=== PATIENT | male | born 1995 | race Caucasian/White ===

== ENCOUNTER → 2016-09-04 | Outpatient (CLI) | payer MEDICAID | LOC: FIMAGING 11:58 | PROVIDERS: ATTEND Internal Medicine | DX: R51 Headache (principal) ==

== ENCOUNTER → 2016-09-13 | Outpatient (CLI) | payer MEDICAID | LOC: FIMAGING 14:29 | PROVIDERS: ATTEND Internal Medicine | DX: G44.84 Primary exertional headache (principal); G43.109 Migraine with aura, not intractable, without status migrainosus; S06.0X0D Concussion without loss of consciousness, subsequent encounter ==